=== PATIENT | female | born 1980 | race Caucasian/White ===

== ENCOUNTER 2020-05-04 11:06 | Emergency (ER) | payer MEDICAID, SELFPAY ==
[2020-05-04 11:08] VITALS: PULSE 92; RESP 18; TEMP 36.9; O2SAT 95; BMI 35.6
--- NOTE | 2020-05-04 11:19 | CT_ITS ---
WS: [id number] CT ABDOMEN AND PELVIS WITH CONTRAST HISTORY: lower abdominal pain, diarrhea TECHNIQUE: Imaging performed of the abdomen and pelvis with IV contrast. Single phase imaging of the abdomen. Coronal and sagittal reformats are submitted. All CT scans at [facility] use at least one of these dose optimization techniques: automated exposure control; mA and/or kV adjustment per patient size (includes targeted exams where dose is matched to clinical indication); or iterativ e reconstruction. IV CONTRAST: Omnipaque 300; 95 mL IV. Oral contrast: No DLP: 1665.14 mGy.cm COMPARISON: None available. Lower thorax: Lung bases are clear. Heart is normal size. No hiatal hernia. Liver/biliary system: Mild hepatic steatosis with moderate hepatomegaly. There is mild central bile d uct dilatation. Gallbladder: Prior cholecystectomy. Common bile duct at pancreatic head is top normal size at 7 mm. Pancreas: Normal. Spleen: Normal. Adrenal glands: Normal. Right kidney: Several small cortical hypodensities are probably cysts but too small to characterize. No obstruction. Left kidney: Several small cortical hypodensities are too small to characterize. No obstruction. Aorta: Atherosclerosis. The extent of atherosclerosis is more advanced than typically seen in this ag e group. Lymphadenopathy: Several small mesenteric lymph nodes are identified centrally and in the RIGHT lower quadrant. Free fluid: None. GI tract: The appendix is not definitely identified. There is mucosal thickening and edema involving the distal small bowel and the ascending colon. Edema extends to the level of the hepatic flexure. Th ere is a additional very mild edema throughout the remaining colon. Numerous diverticula in the desce nding and sigmoid colon. Abdominal wall: Unremarkable abdominal wall. No hernia. Pelvis: No free fluid or adenopathy. Prior hysterectomy. Bones: Benign bone islands in the RIGHT ilium and RIGHT hip. CT/CT abdomen pelvis w con* [id number] IMPRESSION: 1. Acute inflammatory process involving the distal small bowel and the ascendi ng colon. To a lesser extent increased mucosal edema throughout the remaining c olon. Suspect acute inflammatory process such as colitis. 2. Sigmoid diverticulosis without acute diverticulitis. 3. No free air or ascites. 4. Prior cholecystectomy and hysterectomy. 5. Moderate hepatomegaly and hepatic steatosis.
[2020-05-04] MEDS: sodium chloride 0.9% 1,000 ML 999 ML IV (11:20)
--- NOTE | 2020-05-04 11:20 | W.ED.ABDPA2 ---
HPI - Abdominal Pain General: Chief Complaint: Abdominal Pain Stated Complaint: ABD PAIN Time Seen by Provider: 05/04/20 11:10 Source: patient Mode of arrival: ambulatory Limitations: no limitations History of Present Illness: HPI narrative: Patient is a 40-year-old female who presents to ED today for evaluation for lower abdominal pain that has been present for the last 1.5 weeks. Patient states around that time she initially began noticing nonbloody diarrhea but a few days later began developing lower abdominal pain. She states the pain is sharp and crampy in nature and makes her feel like she needs to defecate often. She is not having any urinary hesitancy, frequency, urgency, dysuria. Patient states a few days ago she did notice a few episodes of diarrhea that appeared to have a small amount of bright red blood but this has since subsided. She reports one episode of dry heaving yesterday. She has not been running fevers. No recent antibiotic use, NSAID use, alcohol use, bad food exposures. MD elicited complaint: abdominal pain Pertinent past history: none Onset (ago): day(s) Pain Consistency: constant Location: Periumbilical and Suprapubic Severity: severe Relieving factors: nothing Associated Symptoms: Reports GI cramping, diarrhea, nausea and vomiting; Denies chills, coffee ground emesis, dysuria, fever(s), heartburn, hematemesis, melena and syncope Related Data: Patient : No Review of Systems General: Reports: 10 or more systems reviewed and unremarkable except in HPI and below Const: Denies: fever(s), chills, body aches, change in appetite, change in weight, fatigue or malaise Eyes: Denies: change in vision, blurry vision, photophobia, floaters or seeing flashes ENMT: Denies: throat pain, enlarged tonsils or odynophagia Card: Denies: chest pain, palpitations, irregular heart rhythm, lightheadedness, syncope or dyspnea on exertion Resp: Denies: dyspnea, productive cough or pain on inspiration GI: Reports: abdominal pain, nausea, vomiting, diarrhea and GI cramping; Denies: hematemesis, coffee ground emesis, dysphagia, heartburn, early satiety, melena or white/light colored stool : Denies: flank pain, difficulty voiding, dysuria, urinary frequency, urinary urgency or urinary hesitancy Musc: Denies: neck pain, back pain, extremity pain, extremity swelling or joint pain Skin/Breast: Denies: rash Neuro: Denies: headache(s), numbness in extremities, weakness in extremities or sensory changes PFSH ED PFSH: Surgical History History of hysterectomy Physical Exam Const: COMMON NORMALS: patient oriented x3, no limitations and alert GENERAL APPEARANCE: cooperative and in distress (appears very uncomfortable due to pain) NUTRITIONAL APPEARANCE: obese ORIENTATION/CONSCIOUSNESS: Yes awake, Yes oriented to person, Yes oriented to place and Yes oriented to time HENMT: COMMON NORMALS: normocephalic and atraumatic HEAD & SCALP: normocephalic and atraumatic Neck/C-Spine: COMMON NORMALS: full ROM, no lymphadenopathy and no meningeal signs Resp: COMMON NORMALS: normal respiratory effort and clear to auscultation bilaterally AUSCULTATION: clear to auscultation bilaterally Cardio: COMMON NORMALS: regular rate and regular rhythm RATE: regular rate RHYTHM: regular rhythm GI: COMMON NORMALS: Normal to inspection, nondistended, normoactive bowel sounds present, Soft to palpation, No hepatosplenomegaly present and no masses PALPATION: Yes Soft to palpation, Yes Tenderness to palpation present (GI) (across lower abdomen; mainly suprapubic/umbilical region ), Yes Guarding due to palpation present (GI) and Yes No hepatosplenomegaly present : COMMON NORMALS: Yes no CVA tenderness BLADDER/KIDNEY EXAM: Yes no CVA tenderness Back/Pelvis: COMMON NORMALS: no CVA tenderness Extremity: COMMON NORMALS: normal to inspection, no clubbing, cyanosis or edema and no pedal edema Neuro: COMMON NORMALS: patient oriented x3 SENSORIUM/ORIENTATION: Yes alert, Yes oriented to person, Yes oriented to place and Yes oriented to time MENINGEAL SIGNS: Yes no meningeal signs Skin: COMMON NORMALS: no rashes or lesions noted GENERAL SKIN EXAM: no rashes or lesions noted Course Vital Signs: Vital signs: Vital Signs Temperature 98.4 F 05/04/20 11:08 Pulse Rate 92 05/04/20 11:08 Respiratory Rate 15 05/04/20 11:31 Pulse Oximetry 95 05/04/20 11:08 MDM - Abdominal Pain MDM Narrative: Medical decision making narrative: pts labs and vitals all are non-concerning; CT scan showing distal small bowel and ascending colon inflammation consistent with colitis; she was given IV cipro/flagyl here and will be sent home on these as well as pain medications; strict return to ED precautions given; she needs to follow up with PCP this week Lab Data: Labs: Lab Results 05/04/20 05/04/20 05/04/20 Range/Units 11:27 11:27 11:27 WBC 9.6 (4.0-10.0) 10^3/ uL RBC 4.53 (4.1-5.3) 10^6/u L Hgb 13.6 (11.5-15.3) g/dL Hct 41.8 (37.0-47.0) % MCV 92.3 (81-99) fL MCH 30.0 (28.0-34.0) pg MCHC 32.5 (30.0-36.0) g/dL RDW 13.2 (12.1-15.1) % Plt Count 274 (130-400) 10^3/c mm MPV 10.1 (7.4-10.4) fL Neut % (Auto) 69.3 % Lymph % (Auto) 24.0 % [place] % (Auto) 5.4 % Eos % (Auto) 0.7 % Baso % (Auto) 0.4 % Neut # (Auto) 6.6 (1.8-7.7) 10^3/u L Lymph # (Auto) 2.3 (0.8-4.8) 10^3/u L [place] # (Auto) 0.5 (0.2-0.9) 10^3/u L Eos # (Auto) 0.1 (0.0-0.8) 10^3/u L Baso # (Auto) 0.0 (0.0-0.1) 10^3/u L Nucleated RBC % (a uto) 0 % Nucleated RBCs # 0.0 /100WBC Sodium 139 (136-145) mmol/L Potassium 3.9 (3.5-5.1) mmol/L Chloride 104 (98-107) mmol/L Carbon Dioxide 19 L (22-29) mmol/L Anion Gap 19.9 H (5-19) BUN 6 (6-20) mg/dL Creatinine 0.6 (0.5-0.9) mg/dL GFR Calculation 110.7 (90-130) mL/min Glucose 112 (65-115) mg/dL Calculated Osmolal ity 285 (285-295) mOsm/k g Calcium 9.2 (8.5-10.5) mg/dL Total Bilirubin 0.3 (0.15-1.2) mg/dL AST 16 (0-32) U/L ALT 17 (0-33) U/L Alkaline Phosphata se 76 (35-105) IU/L Total Protein 7.0 (6.6-8.7) g/dL Albumin 4.2 (3.5-5.2) g/dL Globulin 2.8 (1.3-4.6) g/dL Lipase 19 (13-60) U/L Ser , Garcia i-Qnt 6.34 mIU/mL Urine Color (Yellow) Urine Appearance (CLEAR) Urine pH (5-7) Ur Specific Gravit y (1.005-1.030) Urine Protein (Negative) Urine Glucose (UA) (Normal) Urine Ketones (Negative) Urine Blood (Negative) Urine Nitrate (Negative) Urine Bilirubin (NEGATIVE) Urine Urobilinogen (Negative) mg/dL Ur Leukocyte Kelly ase (Negative) 05/04/20 Range/Units 12:00 WBC (4.0-10.0) 10^3/ uL RBC (4.1-5.3) 10^6/u L Hgb (11.5-15.3) g/dL Hct (37.0-47.0) % MCV (81-99) fL MCH (28.0-34.0) pg MCHC (30.0-36.0) g/dL RDW (12.1-15.1) % Plt Count (130-400) 10^3/c mm MPV (7.4-10.4) fL Neut % (Auto) % Lymph % (Auto) % [place] % (Auto) % Eos % (Auto) % Baso % (Auto) % Neut # (Auto) (1.8-7.7) 10^3/u L Lymph # (Auto) (0.8-4.8) 10^3/u L [place] # (Auto) (0.2-0.9) 10^3/u L Eos # (Auto) (0.0-0.8) 10^3/u L Baso # (Auto) (0.0-0.1) 10^3/u L Nucleated RBC % (a uto) % Nucleated RBCs # /100WBC Sodium (136-145) mmol/L Potassium (3.5-5.1) mmol/L Chloride (98-107) mmol/L Carbon Dioxide (22-29) mmol/L Anion Gap (5-19) BUN (6-20) mg/dL Creatinine (0.5-0.9) mg/dL GFR Calculation (90-130) mL/min Glucose (65-115) mg/dL Calculated Osmolal ity (285-295) mOsm/k g Calcium (8.5-10.5) mg/dL Total Bilirubin (0.15-1.2) mg/dL AST (0-32) U/L ALT (0-33) U/L Alkaline Phosphata se (35-105) IU/L Total Protein (6.6-8.7) g/dL Albumin (3.5-5.2) g/dL Globulin (1.3-4.6) g/dL Lipase (13-60) U/L Ser , Garcia i-Qnt mIU/mL Urine Color Yellow (Yellow) Urine Appearance Clear (CLEAR) Urine pH 5 (5-7) Ur Specific Gravit y 1.010 (1.005-1.030) Urine Protein Neg (Negative) Urine Glucose (UA) Norm (Normal) Urine Ketones Negative (Negative) Urine Blood Neg (Negative) Urine Nitrate Negative (Negative) Urine Bilirubin Neg (NEGATIVE) Urine Urobilinogen Norm (Negative) mg/dL Ur Leukocyte Kelly ase Negative (Negative) Imaging Data ^: CT Abd/Pel: Radiologist's impression: [address] [address] [address] Scan Report Signed Patient: Kassi Beyer Unit #: [id number] : 1980 Age/Sex: 40 / F ADM Date: 05/04/20 Loc: ER Room/Bed: Attending Dr: Ordering Provider/Ordering MD: Nichole Howell Date of Service: 05/04/20 Procedure(s): CT abdomen pelvis w con* [id number] Accession Number(s): [id number] Report Number: [id number] WS: [id number] CT ABDOMEN AND PELVIS WITH CONTRAST HISTORY: lower abdominal pain, diarrhea TECHNIQUE: Imaging performed of the abdomen and pelvis with IV contrast. Single phase imaging of the abdomen. Coronal and sagittal reformats are submitted. All CT scans at [facility] use at least one of these dose optimization techniques: automated exposure control; mA and/or kV adjustment per patient size (includes targeted exams where dose is matched to clinical indication); or iterative reconstruction. IV CONTRAST: Omnipaque 300; 95 mL IV. Oral contrast: No DLP: 1665.14 mGy.cm COMPARISON: None available. Lower thorax: Lung bases are clear. Heart is normal size. No hiatal hernia. Liver/biliary system: Mild hepatic steatosis with moderate hepatomegaly. There is mild central bile duct dilatation. Gallbladder: Prior cholecystectomy. Common bile duct at pancreatic head is top normal size at 7 mm. Pancreas: Normal. Spleen: Normal. Adrenal glands: Normal. Right kidney: Several small cortical hypodensities are probably cysts but too small to characterize. No obstruction. Left kidney: Several small cortical hypodensities are too small to characterize. No obstruction. Aorta: Atherosclerosis. The extent of atherosclerosis is more advanced than typically seen in this age group. Lymphadenopathy: Several small mesenteric lymph nodes are identified centrally and in the RIGHT lower quadrant. Free fluid: None. GI tract: The appendix is not definitely identified. There is mucosal thickening and edema involving the distal small bowel and the ascending colon. Edema extends to the level of the hepatic flexure. There is a additional very mild edema throughout the remaining colon. Numerous diverticula in the descending and sigmoid colon. Abdominal wall: Unremarkable abdominal wall. No hernia. Pelvis: No free fluid or adenopathy. Prior hysterectomy. Bones: Benign bone islands in the RIGHT ilium and RIGHT hip. CT/CT abdomen pelvis w con* [id number] IMPRESSION: 1. Acute inflammatory process involving the distal small bowel and the ascending colon. To a lesser extent increased mucosal edema throughout the remaining colon. Suspect acute inflammatory process such as colitis. 2. Sigmoid diverticulosis without acute diverticulitis. 3. No free air or ascites. 4. Prior cholecystectomy and hysterectomy. 5. Moderate hepatomegaly and hepatic steatosis. Dictated By: Elise Lee DO Signed By: Elise Lee DO Signed Date/Time: 05/04/20 1204 DD/ 1154 Discharge Plan Discharge Patient Disposition: Home, Self-Care Clinical Impression: Colitis Condition: Stable Prescriptions: New hydrocodone-acetaminophen 5-325 mg tablet 1 tab PO Q6H PRN (Reason: pain) Qty: 14 RF: 0 Flagyl 500 mg tablet 500 mg PO BID 7 Days Qty: 14 RF: 0 Cipro 500 mg tablet 500 mg PO Q12H Qty: 14 RF: 0 ondansetron HCl [Zofran] 4 mg tablet 4 mg PO Q6H PRN (Reason: nausea and vomiting) Qty: 14 RF: 0 No Action omeprazole 20 mg capsule,delayed release(DR/EC) 20 mg PO DAILY RF: 0 Discharge Orders: Discharge Order (Routine); Ordered 05/04/20 Ordered By: Nichole Howell Referrals: Don Wheat MD [Family Provider] - Patient Instructions: Infectious Colitis (ED) Activity Restrictions/Additional Instructions: Begin taking your antibiotics immediately and finish the full course. As discussed please do a liquid diet over the next 48 hours and advance as tolerated keeping the majority of your diet as bland as possible. Please follow-up with primary care this week for reevaluation. You may return to the emergency department at anytime for worsening pain, fevers, repetitive episodes of vomiting/not being able to keep down your antibiotics. Try taking the Zofran prescribed 15-20 mins before your antibiotics as it can cut down on the nausea you may experience. 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
[2020-05-04 11:31] VITALS: RESP 15
[2020-05-04] MEDS: morphine 4 mg/mL SDV 1 mL IVP (11:31)
[2020-05-04] MEDS: ondansetron 2 mg/ML SDV 2 mL 4 MG IVP (11:32)
[2020-05-04 11:35] LABS: Basophils % 0.4 %; Eosinophils # 0.1 10^3/uL (0.0-0.8); Eosinophils % 0.7 %; Hematocrit 41.8 % (37.0-47.0); Hemoglobin 13.6 g/dL (11.5-15.3); Lymphocytes # 2.3 10^3/uL (0.8-4.8); Mean Corpuscular HGB Conc 32.5 g/dL (30.0-36.0); Mean Corpuscular Volume 92.3 fL (81-99); Mean Platelet Volume 10.1 fL (7.4-10.4); Monocytes # 0.5 10^3/uL (0.2-0.9); Monocytes % 5.4 %; Neutrophils # 6.6 10^3/uL (1.8-7.7); Neutrophils % 69.3 %; Nucleated Red Blood Cells % 0 %; Platelet Count 274 10^3/cmm (130-400); Red Blood Count 4.53 10^6/uL (4.1-5.3); Red Cell Distribution Width 13.2 % (12.1-15.1); White Blood Count 9.6 10^3/uL (4.0-10.0)
[2020-05-04] MEDS: iohexol 300 mg/mL 100 mL Btl IV (11:46)
[2020-05-04 11:49] LABS: Alanine Aminotransferase 17 U/L (0-33); Albumin Level 4.2 g/dL (3.5-5.2); Alkaline Phosphatase 76 IU/L (35-105); Anion Gap 19.9 (5-19); Aspartate Amino Transferase 16 U/L (0-32); Blood Urea Nitrogen 6 mg/dL (6-20); Calcium 9.2 mg/dL (8.5-10.5); Carbon Dioxide 19 mmol/L (22-29); Chloride 104 mmol/L (98-107); Globulin 2.8 g/dL (1.3-4.6); Glomerular Filtration Rate 110.7 mL/min (90-130); Glucose 112 mg/dL (65-115); Lipase 19 U/L (13-60); Osmolality Calculated 285 mOsm/kg (285-295); Potassium 3.9 mmol/L (3.5-5.1); Sodium 139 mmol/L (136-145); Total Bilirubin 0.3 mg/dL (0.15-1.2)
[2020-05-04 12:19] LABS: Bilirubin Urine Neg (NEGATIVE); Blood Urine Neg (Negative); Glucose Urine UA Norm (Normal); Ketones Urine Negative (Negative); Leukocyte Esterase Urine Negative (Negative); Nitrate Urine Negative (Negative); Protein Urine Neg (Negative); Urine Appearance Clear (CLEAR); Urine Color Yellow (Yellow); Urobilinogen Urine Norm (Negative); pH Urine 5 (5-7)
[2020-05-04 12:20] LABS: Add Urine Microscopic? NO
[2020-05-04 12:32] LABS: HCG Quantitative 6.34 mIU/mL
[2020-05-04] MEDS: ciprofloxacin 400 MG/200 ML PREMIX 200 MG IV (12:37)
[2020-05-04] MEDS: HYDROcodone-acetaminophen 5-325 mg Tablet 1 TAB PO (14:15)
[2020-05-04 15:10] VITALS: BP 128/88; PULSE 70; RESP 15; O2SAT 98
--- NOTE | 2020-05-04 15:19 | PC.NURSE ---
Estelita from [facility] called regarding pt Rx for Hydrocodone. Pt already receives a higher dose of Hydrocodone monthly. Nichole Howell notified and per Nichole, do not fill the new prescription given today. Estelita notified of this.
--- NOTE | 2020-05-04 16:39 | PC.NURSE ---
read and agree with assessment
== END 2020-05-04 15:10 | disposition home or self-care (01) ==
PROVIDERS: Emergency Provider Physician Assistant; Family Provider Family Medicine
DX: K52.9 Noninfective gastroenteritis and colitis, unspecified (principal)
CPT/HCPCS: 12345; 36415; 74177; 80053; 81003; 83690; 84702; 85025; 96360; 96361; 96375; 99282; 99283; J0744; J2270; J2405; J7030; Q9967

== ENCOUNTER 2021-04-08 11:57 | Emergency (ER) | payer MEDICAID, SELFPAY ==
[2021-04-08 12:32] VITALS: BP 201/134; PULSE 86; RESP 20; TEMP 36.5; O2SAT 96; BMI 34.7
--- NOTE | 2021-04-08 13:30 | ECG_ITS ---
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 Measurements Intervals [place] Rate: 91 P: 46 PA: 144 QRS: 35 QRSD: 86 T: 55 QT: 373 QTc: 460 Interpretive Statements SINUS RHYTHM No previous ECG available for comparison Electronically Signed On 04-08-2021 19:25:47 CDT by Ravi Morrison M.D. [email or web address]
--- NOTE | 2021-04-08 13:30 | XR_ITS ---
WS: [id number] Portable AP upright chest, 04/08/2021 Clinical Data: chest pain Comparison: None. Findings: No nodules, masses or effusions are seen. The heart is normal. The pulmonary vascularity is not increased. No pneumonia or pneumothorax is seen. XR/XR chest 1V portable [id number] Impression: Negative chest.
--- NOTE | 2021-04-08 14:04 | W.ED.CHESTPA ---
HPI - Chest Pain General: Chief Complaint: Chest Pain Stated Complaint: L RIB PAIN Time Seen by Provider: 04/08/21 14:00 Source: patient Mode of arrival: ambulatory Limitations: no limitations History of Present Illness: HPI narrative: Patient is a 41-year-old female who presents to ED today with a complaint of left lower chest pain that has been present over the past 3 days. She denies any known injury or trauma. She states she did have a little bit of pain at prior to moving a heavy refrigerator and states her pain worsened following that. She reports pain is constant with worsening with movement of her torso and her left arm. She denies shortness of breath or difficulty breathing. Denies cardiac history. No cough. No abdominal pain, nausea, vomiting. Pain seems to be slightly improved if she holds her hand/pushes in over the left lower chest wall. MD complaint: chest pain Onset (ago): day(s) Timing of current episode: constant Prior episodes: No Pain location: left chest Severity: moderate Exacerbating factors: inspiration, palpation and movement Associated symptoms: Reports no associated symptoms; Deny abdominal pain, dyspnea, fever(s), nausea, palpitations, syncope or vomiting Treatment prior to arrival: none Review of Systems Const: Denies: fever(s), chills, body aches, fatigue or malaise Card: Reports: chest pain; Denies: palpitations, irregular heart rhythm, edema, swelling of feet/ankles, lightheadedness, syncope, pre-syncope, dyspnea on exertion, orthopnea, leg pain with exertion or acrocyanosis Resp: Denies: dyspnea, productive cough, non-productive cough, wheezing, pain on inspiration, hemoptysis or chest congestion GI: Denies: abdominal pain, nausea, vomiting or diarrhea : Denies: flank pain or dysuria Musc: Denies: neck pain, back pain, extremity pain or joint pain Skin/Breast: Denies: rash Neuro: Denies: headache(s), numbness in extremities, weakness in extremities or sensory changes PFS ED PFSH: Surgical History History of hysterectomy Physical Exam Const: COMMON NORMALS: patient oriented x3, no limitations and alert GENERAL APPEARANCE: cooperative and in distress (appears uncomfortable) NUTRITIONAL APPEARANCE: obese ORIENTATION/CONSCIOUSNESS: Yes awake, Yes oriented to person, Yes oriented to place and Yes oriented to time HENMT: COMMON NORMALS: normocephalic and atraumatic HEAD & SCALP: normocephalic and atraumatic Neck/C-Spine: COMMON NORMALS: full ROM and no lymphadenopathy GENERAL: Yes normal visual inspection Chest: COMMONS NORMALS: normal inspection of the chest Chest images (female): 1. TTP; palpation reproduces pts pain Resp: COMMON NORMALS: normal respiratory effort and clear to auscultation bilaterally AUSCULTATION: clear to auscultation bilaterally Cardio: COMMON NORMALS: regular rate and regular rhythm RATE: regular rate RHYTHM: regular rhythm GI: COMMON NORMALS: Normal to inspection, nondistended, normoactive bowel sounds present, Soft to palpation, non-tender, No hepatosplenomegaly present and no masses PALPATION: Yes Soft to palpation and Yes No hepatosplenomegaly present : COMMON NORMALS: Yes no CVA tenderness BLADDER/KIDNEY EXAM: Yes no CVA tenderness Back/Pelvis: COMMON NORMALS: no CVA tenderness, thoracic and lumbar spine normal to inspection, no thoracic nor lumbar tenderness and thoraco-lumbar ROM normal Extremity: COMMON NORMALS: normal to inspection, full ROM, capillary refill normal, no clubbing, cyanosis or edema, no calf tenderness and no pedal edema Neuro: SJ COMA SCALE: document GCS findings Independence coma scale eye opening: Spontaneous Independence coma scale verbal response: Orientated Sj coma scale motor response: Obey commands Independence coma scale total score: 15 COMMON NORMALS: patient oriented x3, moves all extremities, no focal motor deficits, no sensory deficits noted and gait normal SENSORIUM/ORIENTATION: Yes alert, Yes oriented to person, Yes oriented to place and Yes oriented to time Skin: COMMON NORMALS: no rashes or lesions noted GENERAL SKIN EXAM: no rashes or lesions noted TRAUMA: no lacerations or abrasions Course Vital Signs: Vital signs: Vital Signs Temperature 97.7 F 04/08/21 12:32 Pulse Rate 68 04/08/21 15:36 Respiratory Rate 16 04/08/21 15:36 Blood Pressure 168/113 04/08/21 15:36 Pulse Oximetry 97 04/08/21 15:36 MDM - Chest Pain MDM Narrative: Medical decision making narrative: Patient resting in NAD. She is taking selfie pictures on her cell phone. She admittedly does not take her blood pressure medication daily as she should-recommend she start doing this and follow-up with PCP if it continues to run high so they can adjust medications accordingly. Her CXR is normal. Baseline and repeat EKGs without ischemic changes. She has a normal troponin. Remainder of labs are overall nonconcerning. She has very mild elevations to her liver enzymes. She is a normal bili and a normal lipase. She has no RUQ pain. Recommend conservative treatment at home. Recommend follow-up with primary care if pain persists. Strict return to ED precautions given. Lab Data: Labs: Lab Results 04/08/21 04/08/21 04/08/21 Range/Units 14:50 14:50 14:50 WBC 8.4 (4.0-10.0) 10^3/ uL RBC 4.37 (4.1-5.3) 10^6/u L Hgb 14.2 (11.5-15.3) g/dL Hct 42.7 (37.0-47.0) % MCV 97.7 (81-99) fL MCH 32.5 (28.0-34.0) pg MCHC 33.3 (30.0-36.0) g/dL RDW 13.7 (12.1-15.1) % Plt Count 204 (130-400) 10^3/c mm MPV 10.1 (7.4-10.4) fL Neut % (Auto) 52.2 % Lymph % (Auto) 40.0 % [place] % (Auto) 4.2 % Eos % (Auto) 2.6 % Baso % (Auto) 0.6 % Neut # (Auto) 4.38 (1.8-7.7) 10^3/u L Lymph # (Auto) 3.4 (0.8-4.8) 10^3/u L [place] # (Auto) 0.4 (0.2-0.9) 10^3/u L Eos # (Auto) 0.2 (0.0-0.8) 10^3/u L Baso # (Auto) 0.1 (0.0-0.1) 10^3/u L Nucleated RBC % (a uto) 0 % Nucleated RBCs # 0.0 /100WBC Sodium 137 (136-145) mmol/L Potassium 4.1 (3.5-5.1) mmol/L Chloride 99 (98-107) mmol/L Carbon Dioxide 25 (22-29) mmol/L Anion Gap 17.1 (5-19) BUN 4 L (6-20) mg/dL Creatinine 0.6 (0.5-0.9) mg/dL GFR Calculation 110.2 (90-130) mL/min Glucose 96 (65-115) mg/dL Calculated Osmolal ity 281 L (285-295) mOsm/k g Calcium 8.8 (8.5-10.5) mg/dL Total Bilirubin 0.5 (0.15-1.2) mg/dL AST 63 H (0-32) U/L ALT 51 H (0-33) U/L Alkaline Phosphata se 105 (35-105) IU/L Troponin T Baselin e 7 (0-10) ng/L Total Protein 6.8 (6.6-8.7) g/dL Albumin 4.2 (3.5-5.2) g/dL Globulin 2.6 (1.3-4.6) g/dL Lipase (13-60) U/L 04/08/21 Range/Units 14:50 WBC (4.0-10.0) 10^3/ uL RBC (4.1-5.3) 10^6/u L Hgb (11.5-15.3) g/dL Hct (37.0-47.0) % MCV (81-99) fL MCH (28.0-34.0) pg MCHC (30.0-36.0) g/dL RDW (12.1-15.1) % Plt Count (130-400) 10^3/c mm MPV (7.4-10.4) fL Neut % (Auto) % Lymph % (Auto) % [place] % (Auto) % Eos % (Auto) % Baso % (Auto) % Neut # (Auto) (1.8-7.7) 10^3/u L Lymph # (Auto) (0.8-4.8) 10^3/u L [place] # (Auto) (0.2-0.9) 10^3/u L Eos # (Auto) (0.0-0.8) 10^3/u L Baso # (Auto) (0.0-0.1) 10^3/u L Nucleated RBC % (a uto) % Nucleated RBCs # /100WBC Sodium (136-145) mmol/L Potassium (3.5-5.1) mmol/L Chloride (98-107) mmol/L Carbon Dioxide (22-29) mmol/L Anion Gap (5-19) BUN (6-20) mg/dL Creatinine (0.5-0.9) mg/dL GFR Calculation (90-130) mL/min Glucose (65-115) mg/dL Calculated Osmolal ity (285-295) mOsm/k g Calcium (8.5-10.5) mg/dL Total Bilirubin (0.15-1.2) mg/dL AST (0-32) U/L ALT (0-33) U/L Alkaline Phosphata se (35-105) IU/L Troponin T Baselin e (0-10) ng/L Total Protein (6.6-8.7) g/dL Albumin (3.5-5.2) g/dL Globulin (1.3-4.6) g/dL Lipase 17 (13-60) U/L Imaging Data^: CXR: Radiologist's impression: [address] [id number] XRay Report Signed Patient: Kassi Beyer Unit #: [id number] : 1980 Age/Sex: 41 / F ADM Date: 04/08/21 Loc: ER Room/Bed: Attending Dr: Ordering Provider/Ordering MD: Nichole Howell Date of Service: 04/08/21 Procedure(s): XR chest 1V portable [id number] Accession Number(s): [id number] Report Number: [id number] WS: [id number] Portable AP upright chest, 04/08/2021 Clinical Data: chest pain Comparison: None. Findings: No nodules, masses or effusions are seen. The heart is normal. The pulmonary vascularity is not increased. No pneumonia or pneumothorax is seen. XR/XR chest 1V portable [id number] Impression: Negative chest. Dictated By: Criss Falcon MD Signed By: Criss Falcon MD Signed Date/Time: 04/08/211399 DD/ 1400 EKG Data^: EKG 1: EKG interpretation date: 04/08/21 EKG interpretation time: 12:40 Interpretation: Sinus rhythm Rate [address] elevation or depression changes noted Signed off by Dr. Andre EKG 2: EKG interpretation date: 04/08/21 EKG interpretation time: 16:07 Interpretation: Sinus rhythm Rate sixty-[address] elevation or depression changes noted No changes when compared to EKG performed on same day Discharge Plan Discharge Patient Disposition: Home Clinical Impression: Left-sided chest wall pain Condition: Stable Prescriptions: New ibuprofen 800 mg tablet 800 mg PO Q8H PRN (Reason: pain) Qty: 20 RF: 0 hydrocodone-acetaminophen 5-325 mg tablet 1 tab PO Q6H PRN (Reason: pain) Qty: 14 RF: 0 No Action omeprazole 20 mg capsule,delayed release(DR/EC) 20 mg PO DAILY RF: 0 hydrocodone-acetaminophen 5-325 mg tablet 1 tab PO Q6H PRN (Reason: pain) Qty: 14 RF: 0 Cipro 500 mg tablet 500 mg PO Q12H Qty: 14 RF: 0 Zofran 4 mg tablet 4 mg PO Q6H PRN (Reason: nausea and vomiting) Qty: 14 RF: 0 Discharge Orders: Discharge ED (Routine); Ordered 04/08/21 Ordered By: Nichole Howell Referrals: Don Whaet MD [Primary Care Provider] - Patient Instructions: Chest Pain - Chest Wall, Opioid Safety Activity Restrictions/Additional Instructions: [facility] is committed to fighting the nationwide opiate epidemic. We are providing ALL patients with information regarding opiate safety. If you received opiate pain medication during your stay or if you received a prescription for opiate pain medication-please review this handout. If not, you may disregard. Thank you. You may return to the emergency department for worsening chest pain, shortness of breath, difficulty breathing, fevers, repetitive episodes of vomiting, lightheadedness/dizziness, passing out episodes, or any other concerns you may have. You need to remember to take your blood pressure medication daily and keep a blood pressure log to follow-up with primary care so they may adjust medications accordingly. Coding Level of Care Code ED Senior Database Administrator for Chg Fwd Exam Comprehensive
[2021-04-08 14:21] VITALS: RESP 18
[2021-04-08] MEDS: morphine 4 mg/mL SDV 1 mL IM (14:21)
[2021-04-08] MEDS: ketorolac 60 mg/2 mL INJ IM (14:27)
[2021-04-08] MEDS: lisinopril 10 mg Tablet 20 MG PO (14:33)
[2021-04-08 14:56] LABS: Basophils # 0.1 10^3/uL (0.0-0.1); Basophils % 0.6 %; Eosinophils # 0.2 10^3/uL (0.0-0.8); Eosinophils % 2.6 %; Hematocrit 42.7 % (37.0-47.0); Hemoglobin 14.2 g/dL (11.5-15.3); Lymphocytes # 3.4 10^3/uL (0.8-4.8); Mean Corpuscular HGB Conc 33.3 g/dL (30.0-36.0); Mean Corpuscular Hemoglobin 32.5 pg (28.0-34.0); Mean Corpuscular Volume 97.7 fL (81-99); Mean Platelet Volume 10.1 fL (7.4-10.4); Monocytes # 0.4 10^3/uL (0.2-0.9); Monocytes % 4.2 %; Neutrophils # 4.38 10^3/uL (1.8-7.7); Neutrophils % 52.2 %; Nucleated Red Blood Cells % 0 %; Platelet Count 204 10^3/cmm (130-400); Red Blood Count 4.37 10^6/uL (4.1-5.3); Red Cell Distribution Width 13.7 % (12.1-15.1); White Blood Count 8.4 10^3/uL (4.0-10.0)
[2021-04-08 15:11] LABS: Alanine Aminotransferase 51 U/L (0-33); Albumin Level 4.2 g/dL (3.5-5.2); Alkaline Phosphatase 105 IU/L (35-105); Anion Gap 17.1 (5-19); Aspartate Amino Transferase 63 U/L (0-32); Blood Urea Nitrogen 4 mg/dL (6-20); Calcium 8.8 mg/dL (8.5-10.5); Carbon Dioxide 25 mmol/L (22-29); Chloride 99 mmol/L (98-107); Globulin 2.6 g/dL (1.3-4.6); Glomerular Filtration Rate 110.2 mL/min (90-130); Glucose 96 mg/dL (65-115); Osmolality Calculated 281 mOsm/kg (285-295); Potassium 4.1 mmol/L (3.5-5.1); Sodium 137 mmol/L (136-145); Total Bilirubin 0.5 mg/dL (0.15-1.2); Total Protein 6.8 g/dL (6.6-8.7)
[2021-04-08 15:12] LABS: Troponin(5th) Baseline 7 ng/L (0-10)
--- NOTE | 2021-04-08 15:30 | ECG_ITS ---
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 Measurements Intervals [place] Rate: 64 P: 15 KS: 155 QRS: 12 QRSD: 86 T: 29 QT: 431 QTc: 445 Interpretive Statements SINUS RHYTHM LOW QRS VOLTAGE IN PRECORDIAL LEADS [QRS DEFLECTION < 1.0 mV IN CHEST LEADS] Compared to ECG 04/08/2021 12:40:04 Low QRS voltage now present Electronically Signed On 04-08-2021 19:28:46 CDT by Ravi Morrison M.D. [id number]
[2021-04-08 15:36] VITALS: BP 168/113; PULSE 68; RESP 16; O2SAT 97
[2021-04-08 15:53] LABS: Lipase 17 U/L (13-60)
== END 2021-04-08 16:15 | disposition home or self-care (01) ==
PROVIDERS: Emergency Provider Physician Assistant; PCP Family Medicine
DX: R07.89 Other chest pain (principal)
CPT/HCPCS: 71045; 80053; 83690; 84484; 85025; 93005; 96372; 99283; J1885; J2270

== ENCOUNTER 2022-08-17 08:38 | Emergency (ER) | payer MEDICAID, SELFPAY ==
[2022-08-17] VITALS (8 sets, daily range): BP systolic 104–125; BP diastolic 66–81; PULSE 74–101; RESP 14–17; TEMP 36.7; O2SAT 95–98; BMI 35.4
[2022-08-17 09:38] LABS: Basophils % 0.2 %; Eosinophils # 0.1 10^3/uL (0.0-0.8); Eosinophils % 0.8 %; Hematocrit 35.9 % (37.0-47.0); Hemoglobin 11.6 g/dL (11.5-15.3); Mean Corpuscular HGB Conc 32.3 g/dL (30.0-36.0); Mean Corpuscular Hemoglobin 32.9 pg (28.0-34.0); Mean Corpuscular Volume 101.7 fl (81-99); Mean Platelet Volume 9.9 fL (7.4-10.4); Monocytes # 0.5 10^3/uL (0.2-0.9); Monocytes % 5.5 %; Neutrophils # 6.83 10^3/uL (1.8-7.7); Neutrophils % 72.2 %; Nucleated Red Blood Cells % 0 %; Platelet Count 274 10^3/cmm (130-400); Red Blood Count 3.53 10^6/uL (4.1-5.3); Red Cell Distribution Width 14.5 % (12.1-15.1); White Blood Count 9.5 10^3/uL (4.0-10.0)
[2022-08-17 09:47] LABS: Urine Appearance Clear (CLEAR)
[2022-08-17 09:48] LABS: Add Urine Microscopic? YES; Bilirubin Urine 2+ (Negative); Blood Urine Neg (Negative); Glucose Urine UA Trace (Normal); Ketones Urine 1+ (Negative); Leukocyte Esterase Urine Trace (Negative); Nitrate Urine Positive (Negative); Protein Urine Trace (Negative); Urine Color Amber (Yellow); Urobilinogen Urine 4+ mg/dL (Negative); pH Urine 5 (5-7)
[2022-08-17 09:49] LABS: Add Urine Culture? No; Bacteria Urine TRACE /hpf; Mucus Urine 3+ /hpf; Squamous Epithelial Cell Urine 0-4 /hpf (0-5)
[2022-08-17 09:56] LABS: Alanine Aminotransferase 16 U/L (0-33); Albumin Level 3.2 g/dL (3.5-5.2); Alkaline Phosphatase 121 U/L (35-105); Anion Gap 15.7 (5-19); Aspartate Amino Transferase 72 U/L (0-32); Blood Urea Nitrogen 4 mg/dL (6-20); Calcium 8.6 mg/dL (8.5-10.5); Carbon Dioxide 28 mmol/L (22-29); Chloride 97 mmol/L (98-107); Creatinine Clr Calc Pharmacy 151.0016; Globulin 3.8 g/dL (1.3-4.6); Glomerular Filtration Rate 135.3 mL/min (90-130); Glucose 106 mg/dL (65-115); Osmolality Calculated 283 mOsm/kg (285-295); Sodium 138 mmol/L (136-145); Total Bilirubin 3.5 mg/dL (0.15-1.2)
[2022-08-17 09:59] LABS: Potassium 2.7 mmol/L (3.5-5.1)
[2022-08-17 10:09] LABS: HCG, Serum Qual Negative (Negative)
--- NOTE | 2022-08-17 10:34 | ECG_ITS ---
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 Measurements Intervals [place] Rate: 87 P: 48 CT: 177 QRS: 14 QRSD: 93 T: 21 QT: 387 QTc: 468 Interpretive Statements SINUS RHYTHM LOW QRS VOLTAGE IN PRECORDIAL LEADS [QRS DEFLECTION < 1.0 mV IN CHEST LEADS] NONSPECIFIC T-WAVE ABNORMALITY Compared to ECG 04/08/2021 16:07:32 T-wave abnormality now present Electronically Signed On 08-17-2022 12:45:58 CDT by Verito Wilkins M.D. [id number]
[2022-08-17 11:11] LABS: Lipase 14 U/L (13-60)
--- NOTE | 2022-08-17 11:11 | PC.PHAR ---
pt states she takes care of her own medications-pt states she had a build up of lisinopril-hctz 20-25mg 1 qam regla last filled 05/10/22 30d/s pt states not taken in about a week-notes are made in the pharmacy comments
[2022-08-17] MEDS: sodium chloride 0.9% 1,000 ML 999 ML IV (11:14)
--- NOTE | 2022-08-17 11:35 | W.ED.ABDPA2 ---
HPI - Abdominal Pain General: Chief Complaint: Abdominal Pain Stated Complaint: abd pain Time Seen by Provider: 08/17/22 08:42 Source: patient Mode of arrival: ambulatory Limitations: no limitations History of Present Illness: Patient comes to the emergency part because of abdominal pain and bright red blood per rectum. She states the symptoms been going on off and on for her for approximately 1 month. He states they have worsened over the past several days this prompted her to come to the emergency department. She has had a prior hysterectomy, C-sections, cholecystectomy. She states that she has little stool but predominantly blood from her rectum. She states she is had some vomiting recently. No vomiting blood. She does not take any anticoagulants or blood thinners. States that she has no history of Crohn's disease or other inflammatory bowel disease that she is aware. No recent antibiotic use, travel outside the country etc. No fevers. MD elicited complaint: abdominal pain Pain Consistency: intermittent Location: Diffuse Quality: cramping Associated Symptoms: Reports hematochezia and vomiting; Denies chills, constipation, dysuria, fever(s), hematemesis and melena Review of Systems Const: Denies: fever(s) or chills Eyes: Denies: change in vision ENMT: Denies: throat pain, odynophagia, nasal discharge or nasal congestion Card: Denies: chest pain, palpitations, irregular heart rhythm or edema Resp: Denies: dyspnea, productive cough or non-productive cough GI: Reports: abdominal pain, vomiting and hematochezia; Denies: hematemesis, constipation or melena : Denies: flank pain, difficulty voiding, dysuria or urinary frequency Musc: Denies: neck pain, back pain, extremity pain or extremity swelling Skin/Breast: Denies: rash or pruritus Neuro: Denies: headache(s), numbness in extremities or weakness in extremities Psych: Denies: anxiety or depression Sathya/Lymph: Denies: easy bruising or easy bleeding PFSH ED PFSH: Surgical History History of hysterectomy Physical Exam Narrative: EXAM NARRATIVE: Overweight alert cooperative. Appears uncomfortable. Const: COMMON NORMALS: patient oriented x3 GENERAL APPEARANCE: cooperative NUTRITIONAL APPEARANCE: overweight ORIENTATION/CONSCIOUSNESS: Yes awake HENMT: COMMON NORMALS: normocephalic, atraumatic, Normal nasal mucous membranes and turbinates present, moist oral mucous membranes and oropharynx normal HEAD & SCALP: normocephalic and atraumatic NOSE: Normal nasal mucous membranes and turbinates present Eye: COMMON NORMALS: Equal, round and reactive pupils present, EOMs intact bilaterally and conjunctivae normal CONJUNCTIVA: Yes conjunctivae normal PUPIL: Yes Equal, round and reactive pupils present Neck/C-Spine: COMMON NORMALS: full ROM, no lymphadenopathy and no JVD Chest: COMMONS NORMALS: normal inspection of the chest and normal palpation of entire chest wall Resp: COMMON NORMALS: normal respiratory effort, No retractions, No use of accessory muscles and clear to auscultation bilaterally AUSCULTATION: clear to auscultation bilaterally Cardio: COMMON NORMALS: no JVD, regular rate, regular rhythm, No murmurs present (Cardio) and Peripheral pulses 2+ throughout RATE: regular rate RHYTHM: regular rhythm PERIPHERAL PULSES: Peripheral pulses 2+ throughout GI: OTHER: Abdomen is soft but voluntary guarding throughout and a diffuse distribution. No masses noted. : COMMON NORMALS: Yes no CVA tenderness BLADDER/KIDNEY EXAM: Yes no CVA tenderness Back/Pelvis: COMMON NORMALS: no CVA tenderness, no thoracic nor lumbar tenderness and thoraco-lumbar ROM normal Extremity: COMMON NORMALS: normal to inspection, full ROM, no joint enlargement, no calf tenderness and no pedal edema Neuro: COMMON NORMALS: patient oriented x3, moves all extremities, no focal motor deficits, no sensory deficits noted and deep tendon reflexes 2+ bilaterally Psych: COMMON NORMALS: mental status grossly normal Skin: COMMON NORMALS: no rashes or lesions noted, turgor normal and no jaundice GENERAL SKIN EXAM: no rashes or lesions noted and turgor normal Course Reevaluation(s): Reevaluation #1: Repeat potassium reveals to be 3.0 EKG does not show any significant concerning rhythm changes. Time: 11:39 Reevaluation #2: Patient states she is feeling some better. Reviewed her history with her in detail. She denies any known exposure to hepatitis, travel outside the country, IV drug use. She does admit to me that she has been drinking alcohol on a daily basis up from just 2 or 3 days prior to presentation. She states she had decided not to drink alcohol anymore she thinks that might be related to her current symptoms. She is drinking oral fluids at this time. She desires to be discharged from the emergency department. I informed her that she has acute diverticulitis without abscess or perforation etc. that is potentially amenable to outpatient treatment but she also has fatty liver as well as an increased bilirubin which likely is due to her alcoholism and I did send a hepatitis panel as well. We will replete her potassium, give her some additional IV fluids, antibiotics and reevaluate for potential discharge versus observation. Time: 12:47 Reevaluation #3: Patient remains improved drinking significant amount of fluids without any difficulty. She strongly desires to be discharged from the emergency department. Review of additional ancillary studies revealed negative hepatitis panel. She has received IV antibiotics for her diverticulitis and coincidently should cover her abnormal urinalysis as well. We reviewed treatment options to include continued observation with antibiotics and reevaluation versus discharge home with primary care follow-up for repeat laboratory evaluation. She strongly is in favor the latter option and acknowledges that she will return should she be unsuccessful in her home treatment. Time: 14:58 Vital Signs: Vital signs: Vital Signs Temperature 98.1 F 08/17/22 08:50 Pulse Rate 98 08/17/22 12:55 Respiratory Rate 17 08/17/22 11:47 Blood Pressure 113/73 08/17/22 12:55 Pulse Oximetry 95 08/17/22 12:55 Oxygen Delivery Me thod 08/17/22 08:50 MDM - Abdominal Pain Medical Decision Making Patient presented to the emergency department with a history of abdominal pain with bloody stools. No syncope, history of blood thinners, history of inflammatory bowel disease. Her work-up today was also notable event that she had hypokalemia that was repeated and found to be a relatively true reading but not to the level of concern. EKG revealed no's evidence of arrhythmia and prolonged monitoring while in the emergency department revealed no evidence of rhythm disturbance. She received repletion of her potassium while in the emergency department. Her work-up did reveal that she had evidence of diverticulitis as well as likely fatty liver with an associated hyperbilirubinemia. Further history revealed that she was a regular drinker and having discontinued that habit just a few days ago. No evidence of other significant pathology to include acute hepatitis etc. Her hyperbilirubinemia may in fact be related to alcoholic liver disease but this will need to be followed up as an outpatient to ensure that her bilirubin improves with her cessation of alcohol intake. She received IV antibiotics while in the emergency department for her diverticulitis which will also can coincide gently cover her abnormal urinalysis. She is stable at this time to be discharged at her desire to outpatient follow-up. Medical Records I reviewed the patient's medical records. Lab Data I reviewed the patient's lab results. : 08/17/22 09:23 08/17/22 10:45 Labs/Radiology: Radiology Impressions Abdomen/Pelvis CT 08/17/22 11:41 IMPRESSION: 1. Diffuse thickening of the sigmoid colon with surrounding induration suspicious for acute diverticulitis. Recommend follow-up to resolution. No drainable fluid collection or abscess. 2. Marked hepatomegaly with diffuse fatty infiltration and heterogeneous enhancement. Recommend correlation with liver function tests and hepatitis screening. Liver measures 26.0 CM craniocaudal increased from 2019. Splenomegaly. 3. Prior cholecystectomy and hysterectomy. Notified Robert Alanis DO at 08/17/2022 12:32 PM. Laboratory Results WBC 9.5 10^3/uL (4.0-10.0) 08/17/22 09: RBC 3.53 10^6/uL (4.1-5.3) L 08/17/22 09:23 Hgb 11.6 g/dL (11.5-15.3) 08/17/22 09: Hct 35.9 % (37.0-47.0) L 08/17/22 09: MCV 101.7 fl (81-99) H 08/17/22 09: MCH 32.9 pg (28.0-34.0) 08/17/22 09: MCHC 32.3 g/dL (30.0-36.0) 08/17/22 09: RDW 14.5 % (12.1-15.1) 08/17/22 09: Plt Count 274 10^3/cmm (130-400) 08/17/22 09: MPV 9.9 fL (7.4-10.4) 08/17/22 09: Neut % (Auto) 72.2 % 08/17/22 09: Lymph % (Auto) 21.0 % 08/17/22 09: [place] % (Auto) 5.5 % 08/17/22 09:23 Eos % (Auto) 0.8 % 08/17/22 09: Baso % (Auto) 0.2 % 08/17/22 09: Neut # (Auto) 6.83 10^3/uL (1.8-7.7) 08/17/22 09:23 Lymph # (Auto) 2.0 10^3/uL (0.8-4.8) 08/17/22 09: [place] # (Auto) 0.5 10^3/uL (0.2-0.9) 08/17/22 09: Eos # (Auto) 0.1 10^3/uL (0.0-0.8) 08/17/22 09: Baso # (Auto) 0.0 10^3/uL (0.0-0.1) 08/17/22 09: Nucleated RBC % (auto) 0 % 08/17/22: Nucleated RBCs # 0.0 /100WBC 08/17/22 09: Sodium 138 mmol/L (136-145) 08/17/22 09: Potassium 3.0 mmol/L (3.5-5.1) L 08/17/22 10:45 Chloride 97 mmol/L (98-107) L 08/17/22 09: Carbon Dioxide 28 mmol/L (22-29) 08/17/22 09: Anion Gap 15.7 (5-19) 08/17/22 09: BUN 4 mg/dL (6-20) L 08/17/22 09: Creatinine 0.5 mg/dL (0.5-0.9) 08/17/22 09: GFR Calculation 135.3 mL/min (90-130) H 08/17/22 09:23 Glucose 106 mg/dL (65-115) 08/17/22 09:23 Calculated Osmolality 283 mOsm/kg (285-295) L 08/17/22 09:23 Calcium 8.6 mg/dL (8.5-10.5) 08/17/22 09:23 Total Bilirubin 3.5 mg/dL (0.15-1.2) H 08/17/22 09: AST 72 U/L (0-32) H 08/17/22 09:23 ALT 16 U/L (0-33) 08/17/22 09: Alkaline Phosphatase 121 U/L (35-105) H 08/17/22 09:23 Total Protein 7.0 g/dL (6.6-8.7) 08/17/22 09: Albumin 3.2 g/dL (3.5-5.2) L 08/17/22 09: Globulin 3.8 g/dL (1.3-4.6) 08/17/22 09: Lipase 14 U/L (13-60) 08/17/22 10:45 HCG, Qual Negative (Negative) 08/17/22 09: Urine Color Kelsey (Yellow) 08/17/22 09:30 Urine Appearance Clear (CLEAR) 08/17/22 09:30 Urine pH 5 (5-7) 08/17/22 09:30 Ur Specific [place] 1.020 (1.005-1.030) 08/17/22 09:30 Urine Protein Trace (Negative) 08/17/22 09:30 Urine Glucose (UA) Trace (Normal) H 08/17/22 09:30 Urine Ketones 1+ (Negative) H 08/17/22 09:30 Urine Blood Neg (Negative) 08/17/22 09:30 Urine Nitrate Positive (Negative) H 08/17/22 09:30 Urine Bilirubin 2+ (Negative) H 08/17/22 09:30 Urine Urobilinogen 4+ mg/dL (Negative) H 08/17/22 09:30 Ur Leukocyte Esterase Trace (Negative) H 08/17/22 09:30 Urine RBC None /hpf (0-2) 08/17/22 09:30 Urine WBC 5-10 /hpf (0-5) H 08/17/22 09:30 Ur Squamous Epith Cells 0-4 /hpf (0-5) H 08/17/22 09:30 Amorphous Sediment Not Reportable 08/17/22 09:30 Urine Bacteria Trace /hpf (NONE) 08/17/22 09:30 Urine Mucus 3+ /hpf 08/17/22 09:30 Hepatitis A IgM Ab Non-reactive (Nonreactive) 08/17/22 13:09 Hep Bs Antigen Non-reactive (Nonreactive) 08/17/22 13:09 Hep Bs Antibody 3.5 (11.5-1000) L 08/17/22 13:09 Hep B Core Total Ab Non-reactive (Nonreactive) 08/17/22 13:09 Hepatitis C Antibody Non-reactive (Nonreactive) 08/17/22 13:09 EKG Data EKG 1: I personally reviewed and interpreted this EKG as follows: Interpretation: Resting EKG shows a ventricular rate of 87 beats minute with normal MA interval, QRS duration. QTc interval. Normal axis. No acute ST-T wave changes noted. Discharge Plan Discharge Patient Disposition: Home Clinical Impression: Diverticulitis, Hyperbilirubinemia, Hypokalemia, Alcohol abuse Condition: Stable Prescriptions: New amoxicillin-pot clavulanate 875-125 mg tablet 1 tab PO Q12H Qty: 20 0RF hyoscyamine sulfate [Levsin] 0.125 mg tablet 0.125 mg PO Q6H PRN (Reason: dyspepsia) Qty: 30 0RF No Action ibuprofen 800 mg tablet 800 mg PO Q8H PRN (Reason: pain) Qty: 20 0RF Stool Softener-Laxative 8.6-50 mg Tablet 1 tab PO BID PRN (Reason: Constipation) [place] 10-325 mg Tablet 1 tab PO TID PRN (Reason: Pain) Xanax 0.5 mg Tablet 0.5 mg PO BID PRN (Reason: Anxiety) Protonix 40 mg Tablet,Delayed Release (Dr/Ec) 40 mg PO BID PRN (Reason: Heartburn) lisinopril-hydrochlorothiazide 20-25 mg Tablet 1 tab PO QAM Discharge Orders: Discharge ED (Routine); Ordered 08/17/22 Ordered By: Robert Alanis Referrals: Don Wheat MD [Primary Care Provider] - 7-10 days (Follow-up on hyperbilirubinemia.) Discharge Diet: Advance as tolerated Discharge Activity: Increase activity as tolerated Patient Instructions: Opioid Safety, Pain Management Activity Restrictions/Additional Instructions: As we discussed you have evidence of diverticulitis along with an elevation in your bilirubin which is likely related to your admitted alcohol daily use. We recommend you not drink any alcohol. We have percent provided a prescription of antibiotics to help treat your diverticulitis as well as a urinary tract infection in addition we have provided some medicine to help with any abdominal cramping. You should schedule a follow-up appoint with your primary care doctor in the next 7 to 10 days for reevaluation and recheck of your labs. If you develop worsening symptoms or unable to tolerate your medication or other concerns return to this emergency department immediately. Coding Level of Care Code ED Asparagus Buncher for Xiomy Burt Exam Comprehensive
--- NOTE | 2022-08-17 11:41 | CT_ITS ---
WS: [id number] CT ABDOMEN PELVIS TECHNIQUE: Contrast-enhanced CT of the abdomen and pelvis with coronal and sagittal reformatted image s. CLINICAL INFORMATION: pain and rectal bleeding COMPARISON: CT May 04, 2020 DLP: 1880.[address] scans at [facility] use at least one of these dose optimization techniques: automated e xposure control; mA and/or kV adjustment per patient size (includes targeted exams where dose is matc hed to clinical indication); or iterative reconstruction. FINDINGS: Cholecystectomy. Hysterectomy. Diffuse thickening with induration about the sigmoid colon compatible with acute diverticulitis. No evidence of drainable abscess or fluid collection. Recommend follow-up to resolution. Marked hepatomegaly with diffuse fatty infiltration and heterogeneous enhancement. Normal portal vein and splenic vein. Splenomegaly measuring 17.2 cm [id number]. Normal GE junction. Small splenule. Normal Caliber abdominal aorta. Aortic calcification. Celiac and SMA are patent. Adrenal glands are n ormal. Normal renal parenchymal enhancement. Small bilateral renal cysts LEFT greater than RIGHT. A f ew slightly prominent periaortic lymph nodes not pathologically enlarged. These are nonspecific but m ost likely reactive. Fat-containing umbilical hernia. No free fluid in the pelvis. CT/CT abdomen pelvis w con* [id number] IMPRESSION: 1. Diffuse thickening of the sigmoid colon with surrounding induration suspici ous for acute diverticulitis. Recommend follow-up to resolution. No drainable f luid collection or abscess. 2. Marked hepatomegaly with diffuse fatty infiltration and heterogeneous enhan cement. Recommend correlation with liver function tests and hepatitis screening . Liver measures 26.0 CM craniocaudal increased from 2019. Splenomegaly. 3. Prior cholecystectomy and hysterectomy. Notified Robert Alanis DO at 08/17/2022 12:32 PM.
[2022-08-17] MEDS: fentaNYL 50 mcg/mL INJ 2mL IVP (11:47)
[2022-08-17] MEDS: iohexol 350 mg/mL 100 mL Btl IV (12:14)
[2022-08-17] MEDS: ampicillin-sulbactam 3 GM in sodium chloride 0.9% (plus) 50 ML IV (13:13)
[2022-08-17] MEDS: potassium bicarb 25 mEq Tablet 50 MEQ PO (13:19)
[2022-08-17] MEDS: lactated ringers 1,000 ML 999 ML IV (13:38)
[2022-08-17 14:01] LABS: Hepatitis A Antibody IgM Non-Reactive (Nonreactive); Hepatitis B Core AB, Total Non-Reactive (Nonreactive); Hepatitis B Surface AB 3.5 (11.5-1000); Hepatitis B Surface Antigen Non-Reactive (Nonreactive); Hepatitis C Virus Antibody Non-Reactive (Nonreactive)
== END 2022-08-17 15:19 | disposition home or self-care (01) ==
PROVIDERS: Family Medicine; Emergency Provider Emergency Medicine; PCP Family Medicine
DX: K57.92 Diverticulitis of intestine, part unspecified, without perforation or abscess without bleeding (principal); E80.6 Other disorders of bilirubin metabolism; E87.6 Hypokalemia; F10.10 Alcohol abuse, uncomplicated
CPT/HCPCS: 74177; 80053; 81001; 83690; 84132; 84703; 85025; 86705; 86706; 86709; 86803; 87340; 93005; 96374; 96375; 99285; J0295; J3010; J7030; Q9967

== ENCOUNTER 2023-06-06 09:05 | Outpatient (CLI) | payer MEDICAID, SELFPAY ==
--- NOTE | 2023-06-06 09:15 | USCV_ITS ---
Kassi Beyer Age: 43 Gender: F : 1980 Exam Date: 06/06/2023 09:41 Ordering Phys: Don Wheat MD Technologist: Valentin Hardwick Exam Location: [facility] Indication: systolic murmur BP: 140 / 96 HR: 88 Rhythm: Sinus Technical Quality: Adequate MEASUREMENTS (Male / Female) Normal Values 2D ECHO LVOT Diameter 2.1 cm LV Ejection Fraction MOD 2C 70.4 % LV Ejection Fraction 2C AL 70.5 % LA Diameter 3.2 cm LA Width 3.8 cm LA Height 5.3 cm RA Width 3.8 cm RA Height 4.8 cm Aorta at Sinotubular Diameter 2.0 cm IVC Diameter 1.9 cm M-MODE Aortic Annulus Diameter 2.3 cm LA Ao Ratio MM 1.5 MV E Point Septal Separation 0.4 cm DOPPLER AV Peak Velocity 256.0 cm/s LVOT Peak Velocity 183.0 cm/s AV Area Cont Eq vti 2.0 cm squared AV Area Cont Eq pk 2.4 cm squared MV Peak Velocity 177.0 cm/s MV Area PHT 4.2 cm squared Mitral E to A Ratio 1.1 MV E' Velocity 79.0 cm/s Mitral E to MV E' Ratio 8.4 Mitral E to LV E' Lateral Ratio 8.0 Mitral E to LV E' Septal Ratio 8.9 TR Peak Velocity 423.3 cm/s TR Peak Gradient 71.7 mmHg TR Mean Velocity 305.8 cm/s TR Mean Gradient 43.5 mmHg TR Velocity Time Integral 105.6 cm Right Atrial Pressure 3.0 mmHg Pulmonary Artery Systolic Pressu 74.7 mmHg PV Peak Velocity 147.0 cm/s RV Acceleration Time 0.1 s RV Ejection Time 0.3 s RV AcT/ET 0.5 FINDINGS Left Ventricle Normal left ventricular size and systolic function, EF 71 %. No regional wall motion abnormalities. Right Ventricle The right ventricle is normal in size and function. Right Atrium The right atrium is normal in size. Left Atrium The left atrium is normal in size. Mitral Valve Trace mitral valve regurgitation. Aortic Valve Peak velocity across aortic valve 2.67 m/s with a peak gradient of 29 and a mean gradient of 13 mmHg. Aortic valve area was calculated to be 1.97 cm squared. Tricuspid Valve [id number] tricuspid valve regurgitation. Estimated pulmonary artery peak systolic pressure 75 mmHg Pulmonic Valve Trace pulmonary valve regurgitation. Pericardium Normal pericardium without effusion. Aorta Normal ascending aorta dimension. IVC Normal IVC dimension with >50% respiratory change of the inferior vena cava. CONCLUSIONS Normal left ventricular size and systolic function, EF 71 %. No regional wall motion abnormalities. Mild aortic valve stenosis- peak velocity across aortic valve 2.67 m/s with a peak gradient of 29 and a mean gradient of 13 mmHg. Aortic valve area was calculated to be 1.97 cm squared. [id number] tricuspid valve regurgitation. Severe pulmonary hypertension with an estimated pulmonary artery peak systolic pressure 75 mmHg. Trace pulmonary valve regurgitation. There is no pericardial effusion. There are no intracardiac masses. No similar previous studies are available for comparison Dr Ester Vasquez MD [facility] (Electronically Signed) Final Date: 09 June 2023 18:48 S
== END 2023-06-06 09:06 | disposition home or self-care (01) ==
PROVIDERS: PCP Family Medicine; Visit Provider Family Medicine
DX: R01.1 Cardiac murmur, unspecified (principal); I35.0 Nonrheumatic aortic (valve) stenosis; I07.1 Rheumatic tricuspid insufficiency; I27.20 Pulmonary hypertension, unspecified
CPT/HCPCS: 93306